=== PATIENT | male | born 1965 | race Hispanic/Latino ===

== ENCOUNTER 2020-06-26 17:02 | Emergency (ER) | payer OTHER ==
[~2020-06-26] VITALS: Ht 170.2 cm; Wt 101.6 kg
[2020-06-26] MEDS ORDERED: ASPIRIN 81 MG CHEW TAB PO ONE (17:45)
[2020-06-26 18:07] LABS: BASOPHILS # (AUTO) 0.1 (0.0-0.1); BASOPHILS % 0.6 % (0.0-1.0); EOSINOPHILS # (AUTO) 0.1 (0.0-0.4); EOSINOPHILS % 1.5 % (0.0-6.0); HEMATOCRIT 41.4 % (38.2-49.6); LYMPHOCYTES # (AUTO) 2.1 (1.0-3.2); LYMPHOCYTES % 26.6 % (18.0-39.1); MEAN CORPUSCULAR HEMOGLOBIN 28.4 pg (28-32); MEAN CORPUSCULAR HGB CONC 33.8 g/dL (31-35); MONOCYTES # (AUTO) 0.7 (0.2-0.8); MONOCYTES % 8.3 % (4.4-11.3); NEUTROPHILS # (AUTO) 4.9 (2.1-6.9); PLATELET COUNT 260 x10e3/uL (140-360); RED BLOOD COUNT 4.93 x10e6/uL (4.3-5.7); RED CELL DISTRIBUTION WIDTH 13.6 % (11.7-14.4)
[2020-06-26 18:19] LABS: ALANINE AMINOTRANSFERASE 129 IU/L (0-55); ALBUMIN 4.6 g/dL (3.5-5.0); ALBUMIN/GLOBULIN RATIO 1.4 (0.8-2.0); ALKALINE PHOSPHATASE 92 IU/L (40-150); ANION GAP 18.9 mmol/L (8-16); BLOOD UREA NITROGEN 16 mg/dL (7-26); BUN/CREATININE RATIO 16 (6-25); CALCIUM 9.2 mg/dL (8.4-10.2); CARBON DIOXIDE 20 mmol/L (22-29); CHLORIDE 105 mmol/L (98-107); CREATINE KINASE 76 IU/L (30-200); CREATININE, SERUM 0.99 mg/dL (0.72-1.25); EST GLOMERULAR FILTRATION RATE > 60 ML/MIN (60-); GLUCOSE 100 mg/dL (74-118); POTASSIUM 3.9 mmol/L (3.5-5.1); SODIUM 140 mmol/L (136-145)
--- NOTE | 2020-06-26 18:46 | Diagnostic Imaging Report ---
EXAMINATION: Head CT HISTORY: Headache, hypertension COMPARISON: None. TECHNIQUE: Helical axial images of the head were obtained. Reformatted coronal and sagittal images from the axial data. Dose modulation, iterative reconstruction, and/or weight based adjustment of the mA/kV was utilized to reduce the radiation dose to as low as reasonably achievable. FINDINGS: Parenchyma: 1. No abnormal densities. 2. No mass or hemorrhage. No CT evidence of acute territorial vascular insult. Extra-axial spaces:No abnormal density. No extra-axial fluid collections Brain volume: Normal for age. Ventricles: No hydrocephalus or displacement. Arteries: No density suggestive of thrombus. Dural sinuses: No abnormal density. Foramen magnum: No mass, Chiari malformation, or basilar invagination. Sella: No obvious mass. Paranasal/mastoid sinuses: Partial opacification with small air fluid levels within the sphenoid sinuses and partial opacification of the right posterior ethmoidal air cells. Skull/Scalp: No lytic or blastic lesions. No fractures. Incidental findings: Partially visualized left orbital floor fracture with mesh in place and ORIF along the left lateral orbit. IMPRESSION: 1. No intracranial abnormalities. 2. Postoperative changes in the left orbit as above. 3. Partial opacification of the bilateral sphenoid and right posterior ethmoid paranasal sinuses. Signed by: Dr. Caryn Cavanaugh M.D. on 06/26/2020 6:42 PM
[2020-06-26] MEDS ORDERED: KETOROLAC TROMETHAMINE 30 MG/ML VIAL IV STA (18:54)
[2020-06-26] MEDS ORDERED: METOCLOPRAMIDE HCL 10 MG/2ML VIAL IV ONE (19:00)
[2020-06-26] MEDS ORDERED: DIPHENHYDRAMINE HCL 25 MG CAP PO ONE (19:00)
--- NOTE | 2020-06-26 19:24 | Emergency Department Note ---
History of Present Illnes History of Present Illness Chief Complaint: Hypertension History of Present Illness This is a 55 year old male Chief Complaint Comment Patient in from home with reports of high blood pressure and headache that started yesterday. Patient went to an urgent care where his blood pressure was 210/110 and due to the headache he was sent here for evaluation. Patient also reports a sore throat that started today and bilateral ear pain since yesterday worse in the left. Socially the patient denies smoking or heavy drinking but does admit to drinking socially. Historian: Patient Arrival Mode: Car Dietary Service Aide Required: No Onset (how long ago): day(s) (4) Location: head Quality: sharp Radiation: Reports non-radiation Severity: moderate Onset quality: gradual Duration (how long): day(s) (4) Timing of current episode: constant Progression: improving Chronicity: new Context: Denies recent illness, Denies recent surgery Relieving factors: none Exacerbating factors: none Associated symptoms: Reports denies other symptoms Treatments prior to arrival: none Past Medical/Family History Physician Review I have reviewed the patient's past medical and family history. Any updates have been documented here. Past Medical History Recent Fever: No Clinical Suspicion of Infectio: No New/Unexplained Change in Ment: No Past Medical History: Hypertension, Kidney Stones Other Medical History: Covid 19 in 04/2020 Other Surgery: cystoscopy for kidney stones in 2018 Social History Smoking Cessation: Never Smoker Alcohol Use: Social Any Illegal Drug Use: No Physically hurt or threatened: No Other Any Pre-Existing Lines (PICC,: No Review of Systems Review of Systems Constitutional: Reports no symptoms EENTM: Reports no symptoms Cardiovascular: Reports no symptoms Respiratory: Reports no symptoms Gastrointestinal: Reports no symptoms Genitourinary: Reports no symptoms Musculoskeletal: Reports no symptoms Integumentary: Reports no symptoms Neurological: Reports headache Psychological: Reports no symptoms Endocrine: Reports no symptoms Hematological/Lymphatic: Reports no symptoms Physical Exam Related Data Allergies: Coded Allergies: No Known Allergies (Unverified , 06/26/20) Triage Vital Signs Vital Signs Date Time Temp Pulse Resp B/P (MAP) Pulse Ox O2 Delivery O2 Flow Rate FiO2 06/26/20 17:14 98.4 69 17 166/79 100 Room Air Vital signs reviewed: Yes Physical Exam CONSTITUTIONAL Constitutional: Present well-developed, Present well-nourished HENT HENT: Present normocephalic, Present atraumatic, Present oropharynx clear/moist, Present nose normal HENT L/R: Present left ext ear normal, Present right ext ear normal EYES Eyes: Reports PERRL, Reports conjunctivae normal NECK Neck: Present ROM normal PULMONARY Pulmonary: Present effort normal, Present breath sounds normal CARDIOVASCULAR Cardiovascular: Present regular rhythm, Present heart sounds normal, Present capillary refill normal, Present normal rate GASTROINTESTINAL Abdominal: Present soft, Present nontender, Present bowel sounds normal GENITOURINARY Genitourinary: Present exam deferred SKIN Skin: Present warm, Present dry MUSCULOSKELETAL Musculoskeletal: Present ROM normal NEUROLOGICAL Neurological: Present alert, Present oriented x 3, Present no gross motor or sensory deficits; Absent cranial nerve deficit, Absent sensory deficit, Absent abnormal coordination, Absent abnormal gait, Absent weakness PSYCHOLOGICAL Psychological: Present mood/affect normal, Present judgement normal Results Laboratory Result Diagram: 06/26/20 1731 06/26/20 1731 Laboratory Laboratory Tests Test 06/26/20 17:31 White Blood Count 7.87 x10e3/uL (4.8-10.8) Red Blood Count 4.93 x10e6/uL (4.3-5.7) Hemoglobin 14.0 g/dL (14.0-18.0) Hematocrit 41.4 % (38.2-49.6) Mean Corpuscular Volume 84.0 fL (81-99) Mean Corpuscular Hemoglobin 28.4 pg (28-32) Mean Corpuscular Hemoglobin Concent 33.8 g/dL (31-35) Red Cell Distribution Width 13.6 % (11.7-14.4) Platelet Count 260 x10e3/uL (140-360) Neutrophils (%) (Auto) 62.0 % (38.7-80.0) Lymphocytes (%) (Auto) 26.6 % (18.0-39.1) Monocytes (%) (Auto) 8.3 % (4.4-11.3) Eosinophils (%) (Auto) 1.5 % (0.0-6.0) Basophils (%) (Auto) 0.6 % (0.0-1.0) Neutrophils # (Auto) 4.9 (2.1-6.9) Lymphocytes # (Auto) 2.1 (1.0-3.2) Monocytes # (Auto) 0.7 (0.2-0.8) Eosinophils # (Auto) 0.1 (0.0-0.4) Basophils # (Auto) 0.1 (0.0-0.1) Absolute Immature Granulocyte (auto 0.08 x10e3/uL (0-0.1) Sodium Level 140 mmol/L (136-145) Potassium Level 3.9 mmol/L (3.5-5.1) Chloride Level 105 mmol/L (98-107) Carbon Dioxide Level 20 mmol/L (22-29) Anion Gap 18.9 mmol/L (8-16) Blood Urea Nitrogen 16 mg/dL (7-26) Creatinine 0.99 mg/dL (0.72-1.25) Estimat Glomerular Filtration Rate > 60 ML/MIN (60-) BUN/Creatinine Ratio 16 (6-25) Glucose Level 100 mg/dL (74-118) Calcium Level 9.2 mg/dL (8.4-10.2) Total Bilirubin 0.5 mg/dL (0.2-1.2) Aspartate Amino Transf (AST/SGOT) 74 IU/L (5-34) Alanine Aminotransferase (ALT/SGPT) 129 IU/L (0-55) Alkaline Phosphatase 92 IU/L (40-150) Creatine Kinase 76 IU/L (30-200) Creatine Kinase MB 1.20 ng/mL (0-5.0) Troponin I 0.005 ng/mL (0-0.300) Total Protein 7.9 g/dL (6.5-8.1) Albumin 4.6 g/dL (3.5-5.0) Globulin 3.3 g/dL (2.3-3.5) Albumin/Globulin Ratio 1.4 (0.8-2.0) Lab results reviewed: Yes Imaging Imaging results reviewed: Yes Diagnostics Tests Diagnostic test(s) reviewed: Yes Assessment & Plan Medical Decision Making MDM 55-year-old male presents for headache ongoing for days. He has not seen a doctor for many years and takes no medications. Initial differential includes intracranial hemorrhage versus migraine versus headache among others. Workup is largely unremarkable. He was given a headache cocktail including Reglan and feels improved. At this time I doubt emergent process is appropriate for discharge. Reassessment Reassessment time: 19:23 Reassessment Well appearing, NAD Assessment & Plan Final Impression: (1) Headache Depart Disposition: HOME, SELF-CARE Last Vital Signs Date Time Temp Pulse Resp B/P (MAP) Pulse Ox O2 Delivery O2 Flow Rate FiO2 06/26/20 17:14 98.4 69 17 166/79 100 Room Air Medications in the ED Aspirin 81 mg PRN ONCE PO ; Start 06/26/20 at 17:45; Stop 06/26/20 at 18:07; Status DC Metoclopramide HCl 10 mg ONCE ONCE IV ; Start 06/26/20 at 19:00; Stop 06/26/20 at 19:03; Status DC Diphenhydramine HCl 25 mg ONCE ONCE PO ; Start 06/26/20 at 19:00; Stop 06/26/20 at 19:03; Status DC Ketorolac Tromethamine 15 mg ONCE STAT IV ; Start 06/26/20 at 18:54; Stop 06/26/20 at 19:03; Status DC EDWARD CLEMENT MD Jun 26, 2020 19:24
--- OUTSIDE RECORDS SUMMARY | 2020-06-26 19:39 | XMS REPORT | Continuity of Care Document ---
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 Coronal and sagittal reformations were obtained. Routine protocol performed. Technique modulation and modification was accomplished to maintain the lowest effective dose to this patient. IV Contrast: None Oral Contrast: None Radiation Dose: Total DLP 749.37 mGy*cm Estimated effective dose: DLP x 0.015 x size factor FINDINGS: LOWER THORAX: No consolidations LIVER: No masses with diffuse f atty infiltration. BILIARY: The gallbladder is unremarkable. No ductal dilatation. SPLEEN: No masses PANCREAS: No masses ADRENALS: No nodules KIDNEYS: No hydronephrosis or hydroureter. Tiny calcified interpolar bilateral renal stones. GI TRACT: No distention, wall thickening or evidence of obstruction. Scattered diverticula within the sigmoid colon. VESSELS: Minimal atherosclerotic calcification. PERITONEUM/RETROPERITONEUM: No free air or fluid LYMPH NODES: No lymphadenopathy REPRODUCTIVE ORGANS: Calcification within the prostate. BLADDER: Unremarkable SOFT TISSUES: Unremarkable BONES: No suspicious bone lesions. Disc space narrowing at L5-S1. Scattered mild spurring of the spine. IMPRESSION: 1. Tiny bilateral nonobstructing interpolar renal stones. 2. No hydronephrosis or dilated ureters. 3. Diffuse fatty infiltration of the liver. Signed by: Dr. Zeeshan Sutton DO on 01/29/2019 4:25 PM Dictated By: ZEESHAN SUTTON DO El ectronically Signed By: ZEESHAN SUTTON DO on 01/29/191624 Transcribed By: AMANDA on 01/29/191624 COPY TO: MIKIE LOPEZ NP Urine Color 2019-01-29 14:53:00 Test Item Urine Color (test code = 5778-6) YELLOW YELLOW [facility] Psatajf1443-13-00 14:53:00* Test Item Value Reference Range Interpretation Comments Urine Clarity (test code = 72714-4) CLEAR CLEAR [facility] Specific Ojovxhx2708-34-02 14:53:00 * Test Item Value Reference Range Interpretation Comments Urine Specific Avinger (test code = 5811-5) 1.010 1.010-1.02 5 [facility] eI6390-30-65 14:53:00* Test Item Value Reference Range Interpretation Comments Urine pH (test code = 67331-0) 6 5-7 [facility] Leukocyte Twkqdung6498-74-18 14:53:00* Test Item Value Reference Range Interpretation Comments Urine Leukocyte Esterase (test code = 5799-2) NEGATIVE NEGATIVE [facility] Xzemxzs2526-91-13 14:53:00* Test Item Value Reference Range Interpretation Comments Urine Nitrite (test code = 59303-0) NEGATIVE NEGATIVE [facility] Mhfuzjz0244-74-00 14:53:00* Test Item Value Reference Range Interpretation Comments Urine Protein (test code = 5804-0) NEGATIVE NEGATIVE [facility] Glucose (UA)2019-01-29 14:53:00* Test Item Value Reference Range Interpretation Comments Urine Glucose (UA) (test code = 2349-9) NEGATIVE NEGATIVE [facility] Rgticfe1308-11-39 14:53:00* Test Item Value Reference Range Interpretation Comments Urine Ketones (test code = 78623-0) NEGATIVE NEGATIVE [facility] Cyugisdvotjp6086-13-89 14:53:00* Test Item Value Reference Range Interpretation Comments Urine Urobilinogen (test code = 06075-7) 0.2 0.2-1 [facility] Ckdmjvuut6722-41-49 14:53:00* Test Item Value Reference Range Interpretation Comments Urine Bilirubin (test code = 1978-6) NEGATIVE NEGATIVE [facility] Zmoeu2103-61-34 14:53:00* Test Item Value Reference Range Interpretation Comments Urine Blood (test code = 80927-7) NEGATIVE NEGATIVE [facility] AKA6061-25-63 14:53:00* Test Item Value Reference Range Interpretation Comments Urine WBC (test code = 5821-4) NONE 0-5 [facility] LYK8607-66-59 14:53:00* Test Item Value Reference Range Interpretation Comments Urine RBC (test code = 11079-9) NONE 0-5 [facility] Dsmyeayv4192-62-25 14:53:00* Test Item Value Reference Range Interpretation Comments Urine Bacteria (test code = 97658-1) FEW NONE [facility] Epithelial Ewvzt9246-30-81 14:53:00 * Test Item Value Reference Range Interpretation Comments Urine Epithelial Cells (test code = 52954-4) NONE NONE [facility] [place]3663-85-12 14:53:00* Test Item Value Reference Range Interpretation Comments Urine Mucus (test code = 8247-9) [facility] Jywuc9169-09-37 14:31:00* Test Item Value Reference Range Interpretation Comments Sodium Level (test code = 2951-2) 135 136-145 L [facility]assium Qabid6696-45-38 14:31:00* Test Item Value Reference Range Interpretation Comments Potassium Level (test code = 2823-3) 4.1 3.5-5.1 [facility]iscoChloride Ugqeg6245-17-51 14:31:00* Test Item Value Reference Range Interpretation Comments Chloride Level (test code = 2075-0) 104 98-107 [facility]iscoCarbon Dioxide Rzdew0537-32-03 14:31:00* Test Item Value Reference Range Interpretation Comments Carbon Dioxide Level (test code = 2028-9) 21 22-29 L [facility]iscoAnion Qkh5084-60-21 14:31:00* Test Item Value Reference Range Interpretation Comments Anion Gap (test code = 09425-8) 14.1 8-16 [facility] Urea Jadbgypz9935-22-20 14:31:00* Test Item Value Reference Range Interpretation Comments Blood Urea Nitrogen (test code = 3094-0) 11 7-26 [facility]isco[facility]inine2019-04-16 14:31:00* Test Item Value Reference Range Interpretation Comments Creatinine (test code = 2160-0) 0.94 0.72-1.25 [facility]isco[facility]UN/Creatinine Cbiua4730-81-24 14:31:00* Test Item Value Reference Range Interpretation Comments BUN/Creatinine Ratio (test code = 3097-3) 12 6-25 [facility]isco[facility]at Glomerular Filtration Rate 2019-01-29 14:31:00* Test Item Value Reference Range Interpretation Comments Estimat Glomerular Filtration Rate (test code = 337888579) > 60 >60 Ranges were taken from the National Kidney Disease Education Program and the [facility] Foundation literature.Reference ranges:60 or greater: Gfowmf29-82 ( for 3 consecutive months): Chronic kidney disease 15 or less: Kidney failureTexas Health FriscoGlucose Ydlbh5888-74-58 14:31:00* Test Item Value Reference Range Interpretation Comments Glucose Level (test code = WXU0937) 97 74-118 [facility]iscoCalcium Wknjm5556-77-34 14:31:00* Test Item Value Reference Range Interpretation Comments Calcium Level (test code = 85234-0) 9.8 8.4-10.2 [facility]iscoMagnesium Ybwyf3476-84-73 14:31:00* Test Item Value Reference Range Interpretation Comments Magnesium Level (test code = 60458-0) 2.3 1.3-2.1 H [facility]iscoWhite Blood Xmipy8503-93-97 14:22:00* Test Item Value Reference Range Interpretation Comments White Blood Count (test code = 6690-2) 7.58 4.8-10.8 [facility]iscoRed Blood Jhsjb3444-35-39 14:22:00* Test Item Value Reference Range Interpretation Comments Red Blood Count (test code = 789-8) 4.65 4.3-5.7 [facility]iscoHemoglobin2019-04-16 14:22:00* Test Item Value Reference Range Interpretation Comments Hemoglobin (test code = 17933-3) 13.3 14.0-18.0 L [facility]iscoHematocrit2019-04-16 14:22:00* Test Item Value Reference Range Interpretation Comments Hematocrit (test code = 4544-3) 39.3 38.2-49.6 [facility]iscoMean Corpuscular Upjbqb0026-09-56 14:22:00* Test Item Value Reference Range Interpretation Comments Mean Corpuscular Volume (test code = 787-2) 84.5 81-99 [facility]iscoMean Corpuscular Ofxfwzibbw3694-51-53 14:22:00* Test Item Value Reference Range Interpretation Comments Mean Corpuscular Hemoglobin (test code = 785-6) 28.6 28-32 [facility]iscoMean Corpuscular Hemoglobin Concent 2019-01-29 14:22:00* Test Item Value Reference Range Interpretation Comments Mean Corpuscular Hemoglobin Concent (test code = 786-4) 33.8 31-35 [facility]iscoRed Cell Distribution Mahar8173-14-22 14:22:00* Test Item Value Reference Range Interpretation Comments Red Cell Distribution Width (test code = 43687-9) 13.2 11.7 -14.4 [facility]iscoPlatelet Fqvyu4539-57-08 14:22:00* Test Item Value Reference Range Interpretation Comments Platelet Count (test code = 777-3) 268 140-360 [facility]iscoNeutrophils (%) (Auto)2019-01-29 14:22:00 * Test Item Value Reference Range Interpretation Comments Neutrophils (%) (Auto) (test code = 64536-7) 60.7 38.7-80.0 [facility]iscoLymphocytes (%) (Auto)2019-01-29 14:22:00 * Test Item Value Reference Range Interpretation Comments Lymphocytes (%) (Auto) (test code = 736-9) 27.8 18.0-39.1 [facility]iscoMonocytes (%) (Auto)2019-01-29 14:22:00* Test Item Value Reference Range Interpretation Comments Monocytes (%) (Auto) (test code = 5905-5) 8.4 4.4-11.3 [facility]iscoEosinophils (%) (Auto)2019-01-29 14:22:00 * Test Item Value Reference Range Interpretation Comments Eosinophils (%) (Auto) (test code = 713-8) 1.6 0.0-6.0 [facility]iscoBasophils (%) (Auto)2019-01-29 14:22:00* Test Item Value Reference Range Interpretation Comments Basophils (%) (Auto) (test code = 706-2) 0.4 0.0-1.0 [facility]iscoIM GRANULOCYTES %2019-01-29 14:22:00* Test Item Value Reference Range Interpretation Comments IM GRANULOCYTES % (test code = IM GRANULOCYTES %) 1.1 0.0- 1.0 H [facility]iscoNeutrophils # (Auto)2019-01-29 14:22:00* Test Item Value Reference Range Interpretation Comments Neutrophils # (Auto) (test code = 751-8) 4.6 2.1-6.9 [facility]iscoLymphocytes # (Auto)2019-01-29 14:22:00* Test Item Value Reference Range Interpretation Comments Lymphocytes # (Auto) (test code = 83911-4) 2.1 1.0-3.2 [facility]iscoMonocytes # (Auto)2019-01-29 14:22:00* Test Item Value Reference Range Interpretation Comments Monocytes # (Auto) (test code = 742-7) 0.6 0.2-0.8 [facility]iscoEosinophils # (Auto)2019-01-29 14:22:00* Test Item Value Reference Range Interpretation Comments Eosinophils # (Auto) (test code = 711-2) 0.1 0.0-0.4 [facility]iscoBasophils # (Auto)2019-01-29 14:22:00* Test Item Value Reference Range Interpretation Comments Basophils # (Auto) (test code = 704-7) 0.0 0.0-0.1 [facility]iscoAbsolute Immature Granulocyte (auto 2019-01-29 14:22:00* Test Item Value Reference Range Interpretation Comments Absolute Immature Granulocyte (auto (gladis t code = Absolute Immature Granulocyte (auto) 0.08 0-0.1 [facility] FOLZV7574-74-47 21:03:00 Negative (04/12/16 4:03 PM)[facility] XEOVK8141-52-13 21:03:001 [facility] IJWJS4572-38-08 21:03:00Negative (04/12/16 4:03 PM) [facility] TSSBK7747-94-07 21:03:002[facility] ZXIHX8912-36-67 21:03:00Clear (04/12/16 4:03 PM)[facility] STOOL 2016-04-12 21:03:001.023[facility] ZSVTU6724-62-73 21:03:00 Moderate *ABN*(04/12/16 4:03 PM)[facility] FXMQQ0702-50-08 21:03:00Negative *NA*(04/12/16 4:03 PM)[facility] ATYCV6414-61-03 21:03:005.0[facility]annCHEM EKMPH3449-90-12 20:12:000.4[facility]annCHE[facility] ECQWP0509-50-67 20:12:0060[facility]CHE[facility] LZZGZ6638-79-74 20:12:0071 [facility] HEZVW1338-86-67 20:12:0076[facility]annCHE[facility] PANEL 2016-04-12 20:12:0027[facility]annCHE[facility] TUHFF4868-38-90 20:12:007.9[facility]CHE[facility] DRKWQ1775-08-31 20:12:004.0[facility]annCHE[facility] NASXX6278-05-74 20:12:001.36[facility]annCHE[facility] PDIOL3686-50-29 20:12:86930Kwxeicfs HermannCHEM VBDFN9412-03-92 20:12:0025[facility]annCHE[facility] QNFET3698-01-98 20:12:003.8 [facility]CHE[facility] DHYGY1005-14-46 20:12:25329Ntlrfpxv HermannCHEM PANEL 2016-04-12 20:12:009.2[facility]annCHE[facility] LTYKC6229-88-48 20:12:83663Frumswtk [facility]annCHEM LYNHG2998-12-62 20:12:0019[facility]annCHE[facility] BJWXO6754-21-92 20:12:0014[facility]annCHE[facility] MOZPY3617-80-41 20:12:0014.8[facility]annCHE[facility] PNCRA1371-55-14 20:12:003.9[facility]annCHE[facility] KFZRY0742-29-02 20:12:001.0 Memorial BspllqoNMCJCSJVOU0906-14-76 20:12:002.0[facility]annHEMATOLOGY 2016-04-12 20:12:000.7[facility]orial ZjkdfrxOJWGSPCZKU9450-92-03 20:12:000.2[facility] DisemzvDADDIBCTBV5175-12-73 20:12:000.1[facility] PsfinlbXWQQESPWBH3953-63-44 20:12:002.2[facility] HsmfbhhVVPCKPXTWM1071-50-63 20:12:0063.3[facility] GFZPWOMPTZ6171-67-01 20:12:0025.4[facility] QmlpsulTEGSPWTRVB5585-19-77 20:12:00 8.2[facility] ZjdybloXZJCSKVUIN1834-23-55 20:12:005.1[facility]annHEMATOLOGY 2016-04-12 20:12:000.9[facility] EwdcgxnFNDTYOSGCE4504-53-35 20:12:008.0[facility] UogpwzmWXIVPDEGED8788-32-99 20:12:0034.0[facility] UwpdtsnEOXCCXDLOP3549-13-33 20:12:0013.7[facility] KnspeusTTHJMAZMKN1741-68-57 20:12:52689Cmvgcnpe [facility] KQFQCEFNID7999-36-48 20:12:0084.7[facility] JbpibmpVMCULWWPLY0025-00-06 20:12:00* Test Item Value Reference Range Interpretation Comments MCH (test code = MCH) 28.8 pg 27.0-31.0 [facility] FnbsruzXOGEFNWULX5381-94-52 20:12:008.0[facility]annHEMATOLOGY 2016-04-12 20:12:004.87[facility] YskstbtZHTCIOAEZE8086-60-56 20:12:0014.0[facility] NqkvbpjQNVDWKEHZP0046-22-50 20:12:0041.2[facility]annCHEM ZXIKC0465-49-04 09:10:004.0[facility]annCHE[facility] VSQHZ6711-66-02 09:10:001.1[facility]annCHE[facility] ZRTBN1305-91-88 09:10:52184Gmvpojxr HermannCHEM OPXMQ0327-78-76 09:10:0025 [facility]CHE[facility] UDFSX5575-13-77 09:10:004.1[facility]annCHEM PANEL 2014-04-03 09:10:54009Fjkfeybh HermannCHEM JCHSR5122-11-26 09:10:003.3[facility]annCHEM KUWCL0123-01-80 09:10:0034[facility]annCHE[facility] YIGUS9643-89-58 09:10:0017[facility]annCHE[facility] ECVFM0105-86-72 09:10:0069[facility]annCHE[facility] PBNJI7401-28-29 09:10:009.1[facility]annCHEM ODBJY8012-24-79 09:10:006.7 [facility]CHE[facility] JRPWP4432-63-51 09:10:003.4[facility]annCHEM PANEL 2014-04-03 09:10:001.0[facility]annCHEM BFUXK5100-96-90 09:10:000.3[facility]annCHEM VGJPJ9326-62-46 09:10:0014.1[facility]annCHEM MUOJU3246-75-19 09:10:0012[facility]annCHEM RXLLZ2520-90-83 09:10:0078[facility]annCHEM ALVAY0390-20-88 09:10:0013[facility]annCHE[facility] KINYF5820-85-87 09:10:72006 [facility]CHE[facility] CWHOH7774-09-49 09:10:001.9[facility]annCHEM PANEL 2014-04-02 10:47:002.7[facility]annCHE[facility] SXYHT2650-47-44 10:47:001.9[facility]annCHE[facility] DKLKD2691-72-51 10:47:0088[facility]annCHE[facility] MLWLN4689-30-42 10:47:0035[facility]annCHE[facility] MAVWF0097-93-03 10:47:0068[facility]annCHE[facility] OMILT6873-69-60 10:47:001.0[facility]annCHE[facility] LJTCT2668-16-40 10:47:0011 [facility]annCHE[facility] AFRYZ2629-39-17 10:47:000.3[facility]annCHEM PANEL 2014-04-02 10:47:003.2[facility]annCHEM VTHXQ3971-03-44 10:47:008.3[facility]annCHE[facility] XKXXV7623-63-91 10:47:0013[facility]annCHEM AZOXQ5828-21-94 10:47:0010.7[facility]annCHEM FNZIA9347-76-97 10:47:0025[facility]annCHE[facility] NPUVW9591-59-93 10:47:003.7[facility]annCHEM WZQKC9198-91-17 10:47:65350 [facility]annCHE[facility] EODTN1785-18-80 10:47:37729Yenumsae HermannCHEM PANEL 2014-04-02 10:47:35386Rmkffjlr HermannCHEM IFHVF4882-39-27 10:47:001.0[facility]annCHEM UZMJG7464-89-20 10:47:0013[facility]annCHEM MHEHB4427-13-56 10:47:006.5[facility]annCHEM ASQUH5910-84-17 10:47:003.3[facility] KVGYQVTCYA8611-00-33 10:47:000.6[facility] DrpydvmNIQOHEVWRS2170-99-11 10:47:000.0 [facility] AlxqozcDCNHGGBQGV4285-72-11 10:47:000.1[facility]annHEMATOLOGY 2014-04-02 10:47:000.3[facility] QbtzlsuAMWAMSCWYR6613-41-91 10:47:002.2[facility] OftwwotCKLKRIQCWP2315-88-84 10:47:009.3[facility] YpdbbayDKSDQMSINM4956-08-87 10:47:0037.1[facility] RdqiujoHAEFUYLETS5038-76-18 10:47:0051.1[facility] IKRCYVSJGU7658-34-53 10:47:002.4[facility] AszfffoFIWEWVHIEQ6156-06-39 10:47:003.3 [facility] VqecdhbWSRNKWCCMX2728-68-73 10:47:16983Deeavoof HermannHEMATOLOGY 2014-04-02 10:47:0013.0[facility] KxqolplRLNKZYUBLO9191-47-04 10:47:007.9[facility] AibicndXKXAJHCOXD4709-04-24 10:47:0035.7[facility] DigclddGDZGGMDCNI3370-17-18 10:47:0012.1[facility] FwmvuwrFTDYNJHVKG4203-95-24 10:47:006.5[facility] LTIJEGFGDG7061-67-13 10:47:004.14[facility] YraspzgSFBFBNOQSS4023-83-42 10:47:00* Test Item Value Reference Range Interpretation Comments MCH (test code = MCH) 29.3 pg 27.0-31.0 [facility] MjieikqLLUUZMGOHN4099-65-39 10:47:0034.0[facility]annHEMATOLOGY 2014-04-02 10:47:0086.3[facility] ULZNN6641-98-73 00:06:24* Test Item Value Reference Range Interpretation Comments UA pH (test code = UA pH) 6.0 1 5.0-8.0 [facility] KZHOJ1677-32-46 00:06:24Negative (04/01/14 7:06 PM) [facility] INMME9916-54-36 00:06:24Negative (04/01/14 7:06 PM) [facility] TCAVP2780-85-53 00:06:240.2[facility] CSKOP9648-18-35 00:06:24Negative (04/01/14 7:06 PM)[facility] IIKKA4641-52-48 00:06:24Large *ABN*(04/01/14 7:06 PM)[facility] HNTRU9706-14-60 00:06:24* Test Item Value Reference Range Interpretation Comments UA Spec Grav (test code = UA Spec Grav) 1.025 1 [facility] YQQTV7250-35-23 00:06:24Negative (04/01/14 7:06 PM) [facility] WTKXW8175-90-73 00:06:24Clear (04/01/14 7:06 PM) [facility] HWROI2831-99-80 00:06:24Performed (04/01/14 7:06 PM) [facility] ZSOCC9767-25-96 00:06:24Yellow *NA*(04/01/14 7:06 PM) [facility] SAMQC4708-22-58 00:06:24Negative *NA*(04/01/14 7:06 PM) [facility] KZYTT0883-22-42 00:06:24Negative *NA*(04/01/14 7:06 PM) [facility] EWTJO4249-27-75 00:06:24>182[facility] SZVRZ9464-75-31 00:06:243[facility]annCHEM JLUTM7368-59-85 17:25:0053[facility]annCHEM XEZCM0447-08-29 17:25:97447Tqgfurwx HermannCHEM PKFCH6342-70-23 17:25:001.1[facility]annCHEM DBCXU5255-32-57 17:25:003.8[facility]annCHEM FNQKB8688-53-39 17:25:0016[facility]annCHEM UVHOB7620-38-14 17:25:0010.0 [facility]annCHE[facility] HBHPB9030-76-82 17:25:0025[facility] HermannCHEM PANEL 2014-04-01 17:25:008.1[facility]annCHEM JGOFJ9114-03-53 17:25:009.0[facility]annCHEM JCAQI4914-69-25 17:25:0045[facility]annCHEM HSZCE3763-50-51 17:25:004.3[facility]annCHEM XNXJA0740-66-15 17:25:004.0[facility]annCHEM UZCUF6891-26-15 17:25:05555Crjfymqk HermannCHEM VMGDN7305-89-75 17:25:16840 [facility]annCHE[facility] SPSSO3964-01-59 17:25:0016[facility]annCHEM PANEL 2014-04-01 17:25:000.9[facility] HermannCHEM BIGFP3945-79-10 17:25:0081[facility]annCHEM BRDDM3141-94-90 17:25:71424Iqwzxubm HermannCHEM KZLRM4191-07-76 17:25:000.9[facility]annCHEM LIOKX2454-19-68 17:25:0014[facility]annCHEM YRYVL6455-41-18 17:25:0096[facility] UcasgbgIKQIPJPZWN1178-08-90 17:25:000.1 [facility] YmbzaecYSYKODIEZA4080-03-11 17:25:000.5[facility]annHEMATOLOGY 2014-04-01 17:25:000.0[facility] WnxfqmdEBUIAJAJRD6773-57-15 17:25:004.5[facility] FbjlwguXMZCYUEHFP0076-98-11 17:25:000.3[facility] LbmfyvbOFNLMLPPLD4325-81-14 17:25:002.1[facility] OumwnlxCPLUJFFIXL4255-17-29 17:25:0061.7[facility] OXJIBAVSIO1955-79-26 17:25:007.2[facility] MdcmgwoCVHHMVJLEK6154-62-72 17:25:00 29.3[facility] TononlsPSJRTBOOKQ1454-12-34 17:25:001.5[facility]annHEMATOLOGY 2014-04-01 17:25:007.6[facility] JrmleptWRQBDNWJCB4463-69-61 17:25:0040.9[facility] KmzuzhoUWIXJVJTZP4488-84-62 17:25:0014.0[facility] VgeexxsFCSIJVDZJN0503-92-63 17:25:004.79[facility] RbajpzqIBPWSAPGMD7839-80-24 17:25:00* Test Item Value Reference Range Interpretation Comments MCH (test code = MCH) 29.3 pg 27.0-31.0 [facility] VgxzkmuVHQMRVJXNZ7014-15-42 17:25:30886Speyewbe HermannHEMATOLOGY 2014-04-01 17:25:0013.4[facility] ZchwxwfMXCRHUYUOP4004-38-08 17:25:0085.5[facility] IzrcspaBLGDJCLTTK9816-64-19 17:25:0034.3[facility] FsfpccyTMWNIOEAJA6096-68-63 17:25:007.3[facility] NhaedgvLCAPLQTHH5859-90-89 22:40:88031Rrdokvyp [facility] JTRKAPLQR0122-29-59 22:40:00<0.010[facility] GngoilhSYSGRYOCK4509-96-97 22:40:00 0.02[facility] YfsjjjtIDFYYJBHX3276-60-43 22:40:000.5[facility] HermannCHEMISTRY 2012-09-21 22:40:000.6[facility] AqphfjlYDHBKAQBB5347-98-96 16:23:77205Jkrbewbx QgtiwajDDFOANCZP6143-87-92 16:23:000.02[facility] WdobhaySYDMUVNBN1363-02-49 16:23:00<0.010[facility] JfheyzsCPWKBGOAG2254-24-38 16:23:06143Dgnqgzah [place] SFYVVZDKU3350-33-39 16:23:0027[facility] ChuyapvUYTJFYIOL2919-04-68 16:23:008.2 [facility] GequdxjNTXUTUFTW8420-46-72 16:23:13392Pkeusejz HermannCHEMISTRY 2012-09-21 16:23:0012[facility] TpadwnoEBCWODUZP2927-95-11 16:23:000.9[facility] NacxlerNBPVHLCHP0256-60-49 16:23:86622Hakkqmqn TkabgpjYNDAYKSNH4273-71-89 16:23:003.9[facility] IqhojqjPCKWDNWVQ2482-20-26 16:23:0095[facility] [place] NOJEVUUXJ3510-94-28 16:23:0012.9[facility] VzylfspIWJSKYDKT4681-88-06 16:23:39407 [facility] PhqbuooIISMLTLML2404-64-39 16:23:000.2[facility] HermannCHEMISTRY 2012-09-21 16:23:0084[facility] TawzrbhUGSGGQNNQ2144-61-43 16:23:008.1[facility] PzcuoniLMWZLXEJB3727-00-76 16:23:000.8[facility] LpcwgrvOGUQWKJTP7938-37-88 16:23:004.3[facility] ThbfewfOEKOZJAYW8276-19-96 16:23:0068[facility] [place] HBEHBPBFN2694-99-33 16:23:0026[facility] IbcukpcDFSVPFCLD2139-28-61 16:23:001.1 [facility] YpjikfqRSUYEZJDM4488-61-59 16:23:003.8[facility] HermannCHEMISTRY 2012-09-21 16:23:000.6[facility] JfyjehvKQEGLDDRV1213-17-42 16:23:000.5[facility] EuvhpupDHOUYLCZQ1268-16-64 16:23:000.7[facility] RfvrxckHOSXVRQZQR7351-85-19 16:23:001.0[facility] NihqaejQORUGYVCAE8653-90-54 16:23:002.2[facility] NBVDHUSDNL4290-19-69 16:23:0017.8[facility] YxtabvlWHNJIPKOZA2701-62-22 16:23:00 74.0[facility] LpyhpbkEKKOEWPNHR2939-57-82 16:23:007.7[facility] HermannHEMATOLOGY 2012-09-21 16:23:000.3[facility] VeypheyCWXZAUWNFS9687-00-53 16:23:009.2[facility] MrdgynwSAHYTLLFSQ1075-97-47 16:23:000.2[facility] WedcbayUVAUSPRPCG3148-91-32 16:23:0013.3[facility] NmrqvdhQMBDOVNODJ9556-30-68 16:23:0033.0[facility] SPNSYYCFIH5058-81-77 16:23:00* Test Item Value Reference Range Interpretation Comments MCH (test code = MCH) 28.9 pg 27.0-31.0 [facility] [id number] 16:23:11220Rbzrfhnv HermannHEMATOLOGY 2012-09-21 16:23:007.9[facility] UslwfumQJEOWPKEQJ7150-98-46 16:23:0087.5[facility] SpclgwoQSBLPIYWDM8671-17-69 16:23:0012.4[facility] OzljaayIBNQPQFVEH6586-10-18 16:23:004.26[facility] UwyfsmhQMFOGIUOBM1269-86-84 16:23:0037.3[facility] GZRHFLODDN5890-41-67 16:23:0012.3[facility]
--- OUTSIDE RECORDS SUMMARY | 2020-06-26 19:39 | XMS REPORT | Continuity of Care Document ---
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 04/02/2014 [facility] URINE AND STOOL UA Nitrite Negative (04/01/14 7:06 PM) Negative 04/02/2014 [facility] URINE AND STOOL UA Turbidity Clear (04/01/14 7:06 PM) Clear 04/02/2014 [facility] URINE AND STOOL Micro? Performed (04/01/14 7:06 PM) 04/02/2014 [facility] URINE AND STOOL UA Color Yellow *NA* (04/01/14 7:06 PM) Yellow 04/02/2014 [facility] URINE AND STOOL UA Ketones Negative *NA* (04/01/14 7:06 PM) Negative 04/02/2014 [facility] URINE AND STOOL UA Bili Negative *NA* (04/01/14 7:06 PM) Negative 04/02/2014 [facility] URINE AND STOOL UA Bacteria Occasional /HPF None Seen /HPF 04/02/2014 [facility] URINE AND STOOL UA RBC >182 0 - 2 04/02/2014 [facility] URINE AND STOOL UA Mucus Few /LPF None Seen /LPF 04/02/2014 [facility] URINE AND STOOL UA Sq Epi Occasional /LPF Few /LPF 04/02/2014 [facility] URINE AND STOOL UA WBC 3 0 - 5 04/02/2014 [facility] CHEM PANEL Amylase Lvl 53 25 - 115 04/01/2014 [facility] CHEM PANEL Lipase Lvl 197 73 - 393 04/01/2014 [facility] CHEM PANEL A/G Ratio 1.1 0.7 - 1.6 04/01/2014 [facility] CHEM PANEL Globulin 3.8 2.0 - 4.0 04/01/2014 [facility] CHEM PANEL B/C Ratio 16 6 - 25 04/01/2014 [facility] CHEM PANEL AGAP 10.0 10.0 - 20.0 04/01/2014 [facility] CHEM PANEL CO2 25 24 - 32 04/01/2014 [facility] CHEM PANEL Total Protein 8.1 6.4 - 8.4 04/01/2014 [facility] CHEM PANEL Calcium Lvl 9.0 8.5 - 10.5 04/01/2014 [facility] CHEM PANEL ALT 45 0 - 65 04/01/2014 [facility] CHEM PANEL Albumin Lvl 4.3 3.5 - 5.0 04/01/2014 [facility] CHEM PANEL Potassium Lvl 4.0 3.5 - 5.1 04/01/2014 [facility] CHEM PANEL Chloride Lvl 106 95 - 109 04/01/2014 [facility] CHEM PANEL eGFR 100 04/01/2014 <sup>3</sup>Result Comment: The eGFR is calculated using the CKD-EPI formula. In most young, healthy individuals the eGFR will be >90 mL/min/1.73m2. The eGFR declines with age. An eGFR of 60-89 may be normal in some populations, particularly the elderly, for whom the CKD-EPI formula has not been extensively validated. Use of the eGFR is not recommended in the following populations:& lt;br/>
Individuals with unstable creatinine concentrations, including patients and those with serious co-morbid conditions.

Patients with extremes in muscle mass or diet.

The data above are obtained from the National Kidney Disease Education Program (NKDEP) which additionally recommends that when the eGFR is used in patients with extremes of body mass index for purposes of drug dosing, the eGFR should be multiplied by the estimated BMI. [facility] CHEM PANEL AST 16 0 - 37 04/01/2014 [facility] CHEM PANEL Bili Total 0.9 0.2 - 1.3 04/01/2014 [facility] CHEM PANEL Alk Phos 81 39 - 136 04/01/2014 [facility] CHEM PANEL Sodium Lvl 137 135 - 145 04/01/2014 [facility] CHEM PANEL Creatinine Lvl 0.9 0.5 - 1.4 04/01/2014 [facility] CHEM PANEL BUN 14 7 - 22 04/01/2014 [facility] CHEM PANEL Glucose Lvl 96 70 - 99 04/01/2014 <sup>6</sup>Interpretive Data: Adult ref erence range values reflect the clinical guidelines
of the [place] [employer]. [facility] HEMATOLOGY Eosinophils # 0.1 0.0 - 0.5 04/01/2014 [facility] HEMATOLOGY Monocytes # 0.5 0.0 - 0.8 04/01/2014 [facility] HEMATOLOGY Basophils # 0.0 0.0 - 0.2 04/01/2014 [facility] HEMATOLOGY Segs-Bands # 4.5 1.5 - 8.1 04/01/2014 [facility] HEMATOLOGY Basophils 0.3 0.0 - 1.0 04/01/2014 [facility] HEMATOLOGY Lymphocytes # 2.1 1.0 - 5.5 04/01/2014 [facility] HEMATOLOGY Segs 61.7 45.0 - 75.0 04/01/2014 [facility] HEMATOLOGY Monocytes 7.2 2.0 - 12.0 04/01/2014 [facility] HEMATOLOGY Lymphocytes 29.3 20.0 - 40.0 04/01/2014 [facility] HEMATOLOGY Eosinophils 1.5 0.0 - 4.0 04/01/2014 [facility] HEMATOLOGY MPV 7.6 7.4 - 10.4 04/01/2014 [facility] HEMATOLOGY Hct 40.9 42.0 - 54.0 04/01/2014 [facility] HEMATOLOGY Hgb 14.0 14.0 - 18.0 04/01/2014 [facility] RBC 4.79 4.70 - 6.10 04/01/2014 [facility] MCH 29.3 27.0 - 31.0 04/01/2014 [facility] HEMATOLOGY Platelet 272 133 - 450 04/01/2014 [facility] HEMATOLOGY RDW 13.4 11.5 - 14.5 04/01/2014 [facility] HEMATOLOGY MCV 85.5 80.0 - 94.0 04/01/2014 [facility] MCHC 34.3 32.0 - 36.0 04/01/2014 [facility] WBC 7.3 3.7 - 10.4 04/01/2014 [facility] CHEMISTRY Total CK 122 12 - 191 09/21/2012 Normal [facility] CHEMISTRY Troponin-T <0.010 0.000 - 0.100 09/21/2012 Normal [facility] CHEMISTRY Troponin-I 0.02 0.00 - 0.40 09/21/2012 Normal [facility] CHEMISTRY CK MB Index 0.5 0.0 - 2.5 09/21/2012 Normal [facility] CHEMISTRY CK MB 0.6 0.5 - 3.6 09/21/2012 Normal [facility] CHEMISTRY Total CK 141 12 - 191 09/21/2012 Normal [facility] CHEMISTRY Troponin-I 0.02 0.00 - 0.40 09/21/2012 Normal [facility] CHEMISTRY Troponin-T <0.010 0.000 - 0.100 09/21/2012 Normal [facility] CHEMISTRY eGFR 101 09/21/2012 NA <sup>1</sup>Result Comment: The eGFR is calculated using the CKD-EPI formula. In most young, healthy individuals the eGFR will be >90 mL/min/1.73m2. The eGFR declines with age. An eGFR of 60-89 may be normal in some populations, particularly the elderly, for whom the CKD-EPI formula has not been extensively validated. Use of the eGFR is not recommended in the following populations:& lt;br/>
Individuals with unstable creatinine concentrations, including patients and those with serious co-morbid conditions.

Patients with extremes in muscle mass or diet.

The data above are obtained from the National Kidney Disease Education Program (NKDEP) which additionally recommends that when the eGFR is used in patients with extremes of body mass index for purposes of drug dosing, the eGFR should be multiplied by the estimated BMI. [facility] CHEMISTRY CO2 27 24 - 32 09/21/2012 Normal [facility] CHEMISTRY Calcium Lvl 8.2 8.5 - 10.5 09/21/2012 LOW [facility] CHEMISTRY Sodium Lvl 137 135 - 145 09/21/2012 Normal [facility] CHEMISTRY BUN 12 7 - 22 09/21/2012 Normal [facility] CHEMISTRY Creatinine Lvl 0.9 0.5 - 1.4 09/21/2012 Normal [facility] CHEMISTRY Chloride Lvl 101 95 - 109 09/21/2012 Normal [facility] CHEMISTRY Potassium Lvl 3.9 3.5 - 5.1 09/21/2012 Normal [facility] CHEMISTRY Glucose Lvl 95 70 - 99 09/21/2012 [facility] <sup>2</sup>Interpretive Data: Adult ref erence range values reflect the clinical guidelines
of the [place] [employer]. [facility] CHEMISTRY AGAP 12.9 10.0 - 20.0 09/21/2012 Normal [facility] CHEMISTRY Lipase Lvl 197 73 - 393 09/21/2012 Normal [facility] CHEMISTRY Bili Direct 0.2 0.0 - 0.3 09/21/2012 Normal [facility] CHEMISTRY Alk Phos 84 39 - 136 09/21/2012 Normal [facility] CHEMISTRY Total Protein 8.1 6.4 - 8.4 09/21/2012 Normal [facility] CHEMISTRY Bili Total 0.8 0.2 - 1.3 09/21/2012 Normal [facility] CHEMISTRY Albumin Lvl 4.3 3.5 - 5.0 09/21/2012 Normal [facility] CHEMISTRY ALT 68 0 - 65 09/21/2012 [facility] CHEMISTRY AST 26 0 - 37 09/21/2012 Normal [facility] CHEMISTRY A/G Ratio 1.1 0.7 - 1.6 09/21/2012 Normal [facility] CHEMISTRY Globulin 3.8 2.0 - 4.0 09/21/2012 Normal [facility] CHEMISTRY Bili Indirect 0.6 0.0 - 1.0 09/21/2012 Normal [facility] CHEMISTRY CK MB Index 0.5 0.0 - 2.5 09/21/2012 Normal [facility] CHEMISTRY CK MB 0.7 0.5 - 3.6 09/21/2012 Normal [facility] HEMATOLOGY Monocytes # 1.0 0.0 - 0.8 09/21/2012 [facility] HEMATOLOGY Lymphocytes # 2.2 1.0 - 5.5 09/21/2012 Normal [facility] HEMATOLOGY Lymphocytes 17.8 20.0 - 40.0 09/21/2012 LOW [facility] HEMATOLOGY Segs 74.0 45.0 - 75.0 09/21/2012 Normal [facility] HEMATOLOGY Monocytes 7.7 2.0 - 12.0 09/21/2012 Normal [facility] HEMATOLOGY Eosinophils 0.3 0.0 - 4.0 09/21/2012 Normal [facility] HEMATOLOGY Segs-Bands # 9.2 1.5 - 8.1 09/21/2012 [facility] HEMATOLOGY Basophils 0.2 0.0 - 1.0 09/21/2012 Normal [facility] HEMATOLOGY RDW 13.3 11.5 - 14.5 09/21/2012 Normal [facility] HEMATOLOGY MCHC 33.0 32.0 - 36.0 09/21/2012 Normal [facility] HEMATOLOGY MCH 28.9 27.0 - 31.0 09/21/2012 Normal [facility] HEMATOLOGY Platelet 285 133 - 450 09/21/2012 Normal [facility] HEMATOLOGY MPV 7.9 7.4 - 10.4 09/21/2012 Normal [facility] HEMATOLOGY MCV 87.5 80.0 - 94.0 09/21/2012 Normal [facility] HEMATOLOGY WBC 12.4 3.7 - 10.4 09/21/2012 [facility] HEMATOLOGY RBC 4.26 4.70 - 6.10 09/21/2012 LOW [facility] HEMATOLOGY Hct 37.3 42.0 - 54.0 09/21/2012 [facility] HEMATOLOGY Hgb 12.3 14.0 - 18.0 09/21/2012 [facility] Pathology Reports No Data Provided for This Section Diagnostic Reports Report Value Date Source Abdomen AP view Abdomen one vi ew: Exam reason: Acute abdominal pain. Right ureteral stent is present. A 6 x 8 mm calculus is noted at the mid right renal shadow. A 6 x 2 mm calculus is noted projected over the anterior pole of the right renal shadow. Some retained fecal material is noted scattered throughout the colon. There is no small bowel dilatation noted. SL:13 04/04/2014 [facility] Kidney pyelogram retrograde Bi lateral retrograde pyelograms: Spot images from Cystoscopy are submitted. Contrast was injected via bilateral ureteral catheters showing and under filled dilated right collecting system. The left collecting system and ureter are normal. The final images show a right ureteral stent in good position. SL:13 04/03/2014 [facility] Renal Stone CT CT SCAN OF THE ABDOMEN AND PELVIS WITHOUT CONTRAST. HX: Acute abdominal pain. COMPARISON: [None] Technique: Helical CT images were obtained from the domes the diaphragms to the symphysis pubis without the administration of oral or intravenous contrast. The lack of IV contrast lowers the sensitivity for diagnostic evaluation. ABDOMEN AND PELVIS: The lung bases are clear. There are no pleural effusions. The heart is normal in size. Grossly normal gallbladder. The unenhanced liver, spleen, pancreas, and adrenals are normal in appearance. Grossly normal appendix. The gastrointestinal structures are unremarkable. No abdominal masses, adenopathy, ascites, or fluid collections are seen. A small 8.0 mm right UPJ calculus is present causing mild hydroureter, hydronephrosis and mild perinephric stranding. No definite renal calculi detected. Small lateral interpolar right renal cyst is present. Grossly normal- appearing left kidney. The bladder is nondistended. Prominent prostate. Mild sigmoid descending diverticulosis. IMPRESSION: 1. A small 8.0 mm right UPJ calculus is present causing mild hydroureter, hydronephrosis and mild perinephric stranding. No definite renal calculi detected. Please correlate with right flank pain. 2. Grossly normal appendix. SL: 12 04/01/2014 [facility] Consultation Notes No Data Provided for This Section Discharge Summaries No Data Provided for This Section History and Physicals No Data Provided for This Section Vital Signs Vital Sign Value Date Comments Source Heart Rate 62 04/12/2016 [facility] Temperature Oral (F) 98.3 F 04/12/2016 [facility] Systolic (mm Hg) 151 04/12/2016 [facility] Diastolic (mm Hg) 87 04/12/2016 [facility] Respitory Rate 18 04/12/2016 [facility] Height 157.48 cm 04/12/2016 [facility] Systolic (mm Hg) 143 04/12/2016 [facility] Diastolic (mm Hg) 65 04/12/2016 [facility] Respitory Rate 20 04/12/2016 [facility] Heart Rate 100 04/12/2016 [facility] Temperature Oral (F) 98.4 F 04/12/2016 [facility] Weight 97.727 04/12/2016 [facility] BMI Calculated 39.41 04/12/2016 [facility] Respitory Rate 16 04/04/2014 [facility] Systolic (mm Hg) 107 04/04/2014 [facility] Heart Rate 56 04/04/2014 [facility] Diastolic (mm Hg) 60 04/04/2014 [facility] Diastolic (mm Hg) 67 04/04/2014 [facility] Systolic (mm Hg) 112 04/04/2014 [facility] Respitory Rate 15 04/04/2014 [facility] Diastolic (mm Hg) 68 04/04/2014 [facility] Respitory Rate 16 04/04/2014 [facility] Systolic (mm Hg) 123 04/04/2014 [facility] Heart Rate 61 04/03/2014 [facility] Heart Rate 60 04/03/2014 [facility] Temperature Oral (F) 98.2 F 04/03/2014 [facility] Temperature Oral (F) 98.1 F 04/03/2014 [facility] Temperature Oral (F) 97.7 F 04/03/2014 [facility] Weight 91.818 04/02/2014 [facility] BMI Calculated 29.89 04/02/2014 [facility] Height 175.26 cm 04/02/2014 [facility] Height 175.26 cm 04/01/2014 [facility] Weight 93.182 04/01/2014 [facility] BMI Calculated 30.34 04/01/2014 [facility] Heart Rate 60 09/22/2012 [facility] Respitory Rate 16 09/22/2012 [facility] Diastolic (mm Hg) 76 09/22/2012 [facility] Temperature Oral (F) 98.4 F 09/22/2012 [facility] Systolic (mm Hg) 129 09/22/2012 [facility] Respitory Rate 18 09/22/2012 [facility] Heart Rate 61 09/22/2012 [facility] Systolic (mm Hg) 126 09/22/2012 [facility] Temperature Oral (F) 98.6 F 09/22/2012 [facility] Diastolic (mm Hg) 73 09/22/2012 [facility] Temperature Oral (F) 98.2 F 09/22/2012 [facility] Diastolic (mm Hg) 63 09/22/2012 [facility] Heart Rate 70 09/22/2012 [facility] Respitory Rate 18 09/22/2012 [facility] Systolic (mm Hg) 124 09/22/2012 [facility] Weight 95.455 09/20/2012 [facility] Height 177.80 cm 09/20/2012 [facility] Weight 95.455 09/19/2012 [facility] Height 177.80 cm 09/19/2012 [facility] Weight 95.455 09/16/2012 [facility] Height 167.64 cm 09/16/2012 [facility] Encounters Location Location Details Encounter Type Encounter Number Reason For Visit Attending Provider ADM Date DC Date Status Source [facility] Emergency [id number] JULISA BARROS 07/10/2011 07/10/2011 Discharged [facility] Emergency [id number] RAMON RICHTER 09/16/2012 09/16/2012 Discharged [facility] Inpatient [id number] BLUE NORTON 201109/22/2012 Discharged [facility] Inpatient [id number] Ildefonso Gonzalez 04/01/2014 04/04/2014 [facility] [id number] 00 Alberto Zamarripa 04/12/2016 04/12/2016 [facility] Procedures No Data Provided for This Section Assessment and Plan No Data Provided for This Section Plan of Care No Data Provided for This Section Social History Social History Date Source Social History TypeResponse Smoking Status Never smoker; Exposure to Tobacco Smoke None; Cigarette Smoking Last 365 Days No; Reg Smoking Cessation Counseling No 04/13/2016 [facility] Family History No Data Provided for This Section Advance Directives No Data Provided for This Section Functional Status No Data Provided for This Section
[2020-06-26 19:49] LABS: BACTERIA,URINE RARE /HPF; BILIRUBIN,URINE NEGATIVE (NEGATIVE); CLARITY,URINE CLEAR (CLEAR); COLOR,URINE YELLOW (YELLOW); KETONES,URINE NEGATIVE (NEGATIVE); LEUKOCYTE ESTERASE ,URINE NEGATIVE (NEGATIVE); NITRITE,URINE NEGATIVE (NEGATIVE); PROTEIN,URINE DIPSTICK NEGATIVE (NEGATIVE); RBC,URINE 0-5 /HPF (0-5); URINE UROBILINOGEN 1 mg/dL (0.2 - 1); WBC,URINE (MAN) 0-5 /HPF (0-5)
[2020-06-26 19:50] LABS: CALCIUM OXALATE CRYSTALS,UR RARE (FEW); MUCUS,URINE FEW (RARE)
[2020-06-26 20:34] VITALS: BP 154/81
== END 2020-06-26 20:47 | disposition home or self-care (01) ==
LOC: ER 19:22
DX: R51 Headache (principal); I10 Essential (primary) hypertension; Z87.442 Personal history of urinary calculi
CPT/HCPCS: 36415; 70450; 80053; 81001; 82550; 82553; 84484; 85025; 99284; J1885; J2765